=== PATIENT | male | born 1965 | race Caucasian/White ===

== ENCOUNTER 2022-03-05 12:30 | Emergency (ER) | payer MEDICAID, SELFPAY ==
[2022-03-05 12:53] VITALS: BP 148/62; PULSE 47; RESP 16; TEMP 36.1; O2SAT 97; BMI 27.1
== END 2022-03-05 15:38 | disposition left against medical advice (07) ==
PROVIDERS: Emergency Provider Emergency Medicine; PCP Internal Medicine
DX: S61.411A Laceration without foreign body of right hand, initial encounter (principal); W31.2XXA Contact with powered woodworking and forming machines, initial encounter; Y93.89 Activity, other specified; Y92.018 Other place in single-family (private) house as the place of occurrence of the external cause; Y99.9 Unspecified external cause status
CPT/HCPCS: 99281